=== PATIENT | male | born 1965 | race African-American/Black ===

== ENCOUNTER 2017-08-02 07:56 | Emergency (ER) | payer MEDICARE ==
[~2017-08-02] VITALS: Ht 177.8 cm; Wt 100.0 kg
[~2017-08-02 07:56] MED LIST: AMLO5TAB2 PO; ASPI-183 PO; CARV25TA PO; FURO20TA PO; KLOR10TA PO; LOSA50TA PO
[2017-08-02 07:59] VITALS: BP 196/104; PULSE 78; RESP 16; TEMP 97.5; O2SAT 98
--- NOTE | 2017-08-02 08:06 | PD ---
HPI Chief Complaint: ENT Complaint Time Seen by Provider: 08:04 Travel History International Travel<30 days: No Contact w/Intl Traveler<30days: No Traveled to known affect area: No History of Present Illness HPI 51-year-old -[place] male presents emergency department with 2 day history of right-sided throat soreness and tenderness, with mild to moderate productive cough of white phlegm. Patient denies fever, chills, headache, postnasal drip, ear pain, or reflux. Pain is about a 6 out of 10. It is worse with swallowing at certain times, as well as with palpation to the right anterior neck. It does not seem to be worsened by eating. He has no difficulty swallowing, just discomfort. Patient is a non-smoker. He has no known drug allergies. PFSH Past Medical History Diminished Hearing: No Psychiatric: No Past Surgical History Abdominal Surgery: Yes (SPLEENECTOMY) Body Medical Devices: lizbet in left arm Social History Alcohol Use: No Tobacco Use: No Substance Use: No Allergies-Medications (Allergen,Severity, Reaction): Coded Allergies: No Known Allergies (Verified , 02/21/16) Reported Meds & Prescriptions Reported Meds & Active Scripts Active Klor-Con 10 (Potassium Chloride) 10 Meq Tab 10 Meq PO DAILY Losartan (Losartan Potassium) 50 Mg Tab 50 Mg PO DAILY Furosemide 20 Mg Tab 20 Mg PO DAILY Carvedilol 25 Mg Tab 25 Mg PO Q12HR Aspirin 325 Mg Tab 325 Mg PO DAILY Amlodipine (Amlodipine Besylate) 5 Mg Tab 5 Mg PO DAILY Review of Systems Except as stated in HPI: all other systems reviewed are Neg General / Constitutional: No: Fever Eyes: No: Visual changes HENT: Positive: Sore Throat, Neck Pain, Other (Swollen lymph node right anterior neck), No: Headaches, Vertigo, Lightheadedness, Rhinitis, Rhinorrhea, Congestion, Nosebleed, Neck Stiffness, Masses, Dental Difficulties, Earache Cardiovascular: No: Chest Pain or Discomfort Respiratory: No: Shortness of Breath Gastrointestinal: No: Abdominal Pain Genitourinary: No: Dysuria Musculoskeletal: No: Pain Skin: No Rash Neurologic: No: Weakness Psychiatric: No: Depression Endocrine: No: Polydipsia Hematologic/Lymphatic: No: Easy Bruising Physical Exam Narrative GENERAL: Patient appears in no obvious distress. SKIN: Warm and dry. Normal color. Normal turgor. No rash. HEAD: Atraumatic. Normocephalic. No sinus tenderness. EYES: Pupils equal and round. No scleral icterus. No injection or drainage. ENT: No nasal bleeding or discharge. Mucous membranes pink and moist. TMs are clear bilaterally. Pharynx is cobblestoning and erythema with mild injection. He does not have significantly swollen tonsils. Airways patent. Uvula is midline. No signs of abscess. NECK: Trachea midline. Patient is moderately tender right-sided anterior cervical lymph node noted. It is mildly to moderately swollen. CARDIOVASCULAR: Regular rate and rhythm. No murmurs gallops or rubs. RESPIRATORY: No accessory muscle use. Clear to auscultation. Breath sounds equal bilaterally. MUSCULOSKELETAL: Extremities without clubbing, cyanosis, or edema. No obvious deformities. NEUROLOGICAL: Awake and alert. No obvious cranial nerve deficits. Motor grossly within normal limits. Five out of 5 muscle strength in the arms and legs. Normal speech. PSYCHIATRIC: Appropriate mood and affect; insight and judgment normal. Data Data Last Documented VS Vital Signs Date Time Temp Pulse Resp B/P (MAP) Pulse Ox O2 Delivery O2 Flow Rate FiO2 08/02/17 07:59 97.5 78 16 196/104 (134) 98 MDM Medical Decision Making Medical Screen Exam Complete: Yes Emergency Medical Condition: Yes Differential Diagnosis Pharyngitis. Lymphadenitis. Tonsillitis. Narrative Course Patient is felt to have pharyngitis. Patient treated with amoxicillin 875 twice daily for 10 days. Patient can take ibuprofen and Tylenol as needed. Patient to follow-up if symptoms do not improve or worsen as needed. Patient Instructions: Adenitis (ED), General Instructions, Pharyngitis (ED) Additional Instructions: Patient is felt to have pharyngitis. Patient treated with amoxicillin 875 twice daily for 10 days. Patient can take ibuprofen and Tylenol as needed. Patient to follow-up if symptoms do not improve or worsen as needed. Med/Other Pt SpecificInfo: Prescription(s) given Scripts Amoxicillin (Amoxicillin) 875 Mg Tab 875 MG PO BID for Infection for 10 Days, #20 TAB 0 Refills Prov: Valentin Cespedes MD 08/02/17 Disposition: 01 DISCHARGE HOME Condition: Stable Ganga Ochoa Aug 02, 2017 08:06
[2017-08-02] MEDS ORDERED: AMOX875T PO (08:17)
== END 2017-08-02 08:33 | disposition home or self-care (01) ==
LOC: NEPD 07:56
DX: J02.9 Acute pharyngitis, unspecified (principal)
CPT/HCPCS: 99283